=== PATIENT | female | born 1995 | race Caucasian/White ===

== ENCOUNTER 2023-05-19 14:34 | Emergency (ER) | payer MEDICAID, OTHER ==
[~2023-05-19] VITALS: Ht 160 cm; Wt 77.1 kg
[2023-05-19 14:56] VITALS: BP 138/81; PULSE 87; RESP 14; TEMP 97.8; O2SAT 100
[2023-05-19] MEDS ORDERED: ACETAMINOPHEN 325 MG TAB PO ONE (15:20)
[2023-05-19] MEDS ORDERED: METOCLOPRAMIDE 10 MG/2 ML INJ VIAL IVP ONE (15:20)
[2023-05-19] MEDS ORDERED: NACL 0.9% 1,000 ML IV ONE (15:20)
[2023-05-19] MEDS ORDERED: ACET-10509 PO (15:57)
[2023-05-19 18:46] VITALS: BP 138/81; PULSE 87; RESP 14; TEMP 97.8; O2SAT 100
== END 2023-05-19 18:46 | disposition home or self-care (01) ==
LOC: MED 14:34
DX: O99.351 Diseases of the nervous system complicating pregnancy, first trimester (principal); R51.9 Headache, unspecified; Z3A.13 13 weeks gestation of pregnancy; Z79.899 Other long term (current) drug therapy; Z88.0 Allergy status to penicillin
CPT/HCPCS: 96361; 96374; 99283; J2765; J7030

== ENCOUNTER 2024-01-12 10:39 | Emergency (ER) | payer MEDICAID, OTHER ==
[~2024-01-12] VITALS: Ht 160 cm; Wt 81.6 kg
[~2024-01-12 10:39] MED LIST: ACET-10509 PO
[2024-01-12 10:48] VITALS: BP 118/73; PULSE 60; RESP 18; TEMP 97.5; O2SAT 95
[2024-01-12] MEDS ORDERED: ACET-2619 PO (11:06)
[2024-01-12] MEDS ORDERED: OFLO10SO16 OT (11:06)
== END 2024-01-12 11:19 | disposition home or self-care (01) ==
LOC: MED 10:39
DX: H60.93 Unspecified otitis externa, bilateral (principal); Z79.1 Long term (current) use of non-steroidal anti-inflammatories (NSAID); Z79.2 Long term (current) use of antibiotics; Z88.0 Allergy status to penicillin
CPT/HCPCS: 99283